=== PATIENT | male | born 1955 | race Caucasian/White ===

== ENCOUNTER → 2016-04-04 | Outpatient (CLI) | payer BC | LOC: LAB 13:34 | PROVIDERS: ATTEND Internal Medicine Cardiovascular Disease | DX: I71.9 Aortic aneurysm of unspecified site, without rupture (principal) | CPT/HCPCS: 36415; 82565 ==

== ENCOUNTER → 2016-10-27 | Outpatient (CLI) | payer BC ==
--- NOTE | 2016-10-27 10:40 | DI ---
History: Low back pain with radiculopathy into the right lower extremity Comparison: no previous MRI studies of the lumbar spine Findings: Conus medullaris normal in position at the level of L1-2. Cauda equina unremarkable in appearance. T12-L1: No stenosis or foraminal narrowing L1-2: No stenosis or foraminal narrowing L2-3: Mild degenerative changes of facet joints. No stenosis or foraminal narrowing L3-4: 1.6 x 1.2 x 1.1 cm sequestered disc fragment in the right lateral recess resulting in mild foca l spinal stenosis. The neural foramina remain patent at the level of L3-4. There are mild degenerativ e changes at this level. L4-5: mild posterior disc bulge. Moderate to severe bilateral degenerative facet changes. Combination of disc bulge and degenerative changes in the facet joints results in mild right neural foraminal na rrowing, and moderate to severe left neural foraminal narrowing. L5-S1 posterior disc bulge impresses on the thecal sac slightly. There is no spinal stenosis. The dis c bulge in combination with moderate degenerative changes of facet joints results in mild to moderate right, and moderate to severe left neural foramina narrowing at this level. Impression: At the level of L3-4 there is a sequestered disc fragment in the right lateral recess. There is subse quent mild focal spinal stenosis. At the level of L4-5 there is mild right neural foraminal narrowing, and moderate to severe left neur al foraminal narrowing secondary to a posterior disc bulge, in combination with hypertrophic degenera tive changes in the facet joints At the level of L5-S1 there is a posterior disc bulge and there are moderate degenerative changes of facet joints resulting in moderate right, and moderate to severe left neural foraminal narrowing.
== END ==
LOC: MRI 07:56
PROVIDERS: ATTEND Physician Assistant Medical
DX: M54.5 Low back pain (principal); M47.26 Other spondylosis with radiculopathy, lumbar region; M47.27 Other spondylosis with radiculopathy, lumbosacral region
CPT/HCPCS: 72148